=== PATIENT | female | born 2000 | race Caucasian/White ===

== ENCOUNTER → 2024-03-24 | Outpatient (CLI) | payer MEDICAID, SELFPAY ==
--- NOTE | 2024-03-24 09:28 | XR_ITS ---
Examination: Esophagram standard Fluoroscopy Upright PA chest single view Upright soft tissue lateral neck single view 18 spot fluoroscopic films of the esophagus Exam date and time: March 24, 2024 [id number] hours INDICATIONS: Difficulty swallowing, heartburn reflux disease one year FINDINGS: Upright PA chest single view demonstrates normal heart size, clear lungs Satisfactory alignment cervical vertebral bodies No cervical fracture Normal epiglottis Primary peristaltic esophageal waves noted Moderate intermittent gastroesophageal reflux No stricture at the gastroesophageal junction No esophageal ulcerations No esophageal constricting lesion depicted IMPRESSION: Moderate intermittent gastroesophageal reflux There is no stricture at the gastroesophageal junction Fluoroscopy 20 seconds 18 spot fluoroscopic films
== END | disposition home or self-care (01) ==
LOC: CDIM 09:14
PROVIDERS: PCP Physician Assistant; Referring Provider Physician Assistant; Visit Provider Physician Assistant
DX: K21.9 Gastro-esophageal reflux disease without esophagitis (principal)
CPT/HCPCS: 74220